=== PATIENT | male | born 1965 | race Caucasian/White ===

== ENCOUNTER 2022-01-08 04:20 | Day surgery (SDC) | payer OTHER ==
[2022-01-03 15:24] VITALS: BMI 17.6
[2022-01-08] MEDS ORDERED: MIDAZOLAM HCL 2 MG/2 ML SINGLE DOSE VIAL ONE (14:10)
[2022-01-08 16:13] VITALS: PULSE 50
[2022-01-08 17:10] VITALS: BP 138/68; RESP 18; TEMP 97.9
== END 2022-01-08 17:35 | disposition home or self-care (01) ==
LOC: JASU-SURG 04:20
PROVIDERS: ATTEND Urology
PROC: 0TF4XZZ Fragmentation in Left Kidney Pelvis, External Approach (ICD-10-PCS; principal; 2022-01-08 14:31)
DX: N20.0 Calculus of kidney (principal)